=== PATIENT | female | born 1965 | race Two or more races ===

== ENCOUNTER 2025-02-25 15:19 | Outpatient (CLI) | payer OTHER, MEDICAID ==
[2025-02-25] MEDS ORDERED: ALBUTEROL SULF 2.5 MG/0.5ML(0.5%) NEB SOLN ONE (15:32)
== END 2025-02-25 17:00 | disposition home or self-care (01) ==
LOC: RT 15:19
PROVIDERS: ATTEND Internal Medicine Pulmonary Disease
DX: Z01.811 Encounter for preprocedural respiratory examination (principal); J44.9 Chronic obstructive pulmonary disease, unspecified; R06.02 Shortness of breath
CPT/HCPCS: 94060; 94727; 94729